=== PATIENT | female | born 1965 | race American Indian/Alaskan Native ===

== ENCOUNTER 2019-01-27 08:18 | Outpatient (CLI) | payer MEDICARE ==
[2019-01-27 11:14] LABS: Chol/HDL Ratio 4.3 %
== END 2019-01-27 08:19 | disposition home or self-care (01) ==
LOC: LAB 08:18
PROVIDERS: ATTEND Internal Medicine
DX: E78.00 Pure hypercholesterolemia, unspecified (principal)
CPT/HCPCS: 36415; 80061

== ENCOUNTER 2019-02-05 09:25 | Outpatient (CLI) | payer MEDICARE ==
--- NOTE | 2019-02-06 00:04 | Magnetic Resonance Report ---
PROCEDURE PROCEDURE: MRI SHOULDER WITHOUT CONTRAST TECHNIQUE: Magnetic resonance imaging of the LEFT shoulder was performed using standard pulse sequen tucker. CPT 52785 HISTORY: Decreased range of motion. Pain. Possible impingement COMPARISONS: None . FINDINGS: There is mild hypertrophic degenerative changes in the AC joint. There is diffuse thickening of the s upraspinatus tendon and increased T2 signal as well as mild increased T1 signal consistent with diffu se tendinosis. In addition there is focal T2 hyperintensity at the insertion of the supraspinatus ten don on the greater tuberosity along the bursal surface consistent with a partial-thickness tear. No evidence of full-thickness tear or retraction. Diffuse tendinosis also visualized within the infraspi natus tendon. Teres minor tendon is intact. The long head of the biceps tendon is appropriately locat ed within its groove. There is some fluid in the long head of the biceps tendon sheath consistent wit h tenosynovitis. There is increased T2 signal in the subscapularis tendon as it inserts on the lesser tuberosity consistent with tendinitis/partial tear. No evidence of full-thickness tear or retraction . Glenoid labrum grossly unremarkable. There is heterogeneous signal in the articular cartilage in the glenohumeral joint space consistent with chondromalacia. No exposed cortical bone is seen. There is n o evidence of joint effusion. No abnormal fluid is seen in the subacromial or subdeltoid bursa. IMPRESSION: Diffuse tendinosis supraspinatus tendon. In addition there appears to be a partial thick ness tear of the supraspinatus tendon as it inserts on the greater tuberosity along the bursal surfac e. No evidence of full-thickness tear or retraction. . Tendinosis infraspinatus tendon. Tendinitis versus partial thickness tear subscapularis tendon as it inserts on the lesser tuberosity. Mild tenosynovitis of the biceps tendon. Mild chondromalacia glenohumeral joint space. Mild hypertrophic degenerative changes AC joint. This document is electronically signed by Theron Astudillo MD., February 06 2019 01:02:49 AM ET
== END 2019-02-05 09:26 | disposition home or self-care (01) ==
LOC: MRI 09:25
PROVIDERS: ATTEND Orthopaedic Surgery
DX: M19.012 Primary osteoarthritis, left shoulder (principal); M94.212 Chondromalacia, left shoulder; M75.80 Other shoulder lesions, unspecified shoulder

== ENCOUNTER 2019-04-22 02:56 | Emergency (ER) | payer MEDICARE ==
[2019-04-22 03:46] VITALS: BP 127/83
--- NOTE | 2019-04-22 04:16 | Emergency Department Report ---
Chief Complaint: Medical Clearance Stated Complaint: RABIES VACCINE Time Seen by Provider: 04/22/19 04:06 - HPI History of Present Illness: This is a 53-year-old female who presents with complaining of exposure to that that happened a week ago. Patient states that she was not bit by the bat. Patient states she came in the room and dispose of the back with cup and let it out the front door. Patient states that she did not sustain any bites from the bat. Patient states she was not aware when the bat how long the bat was on the crib. She presents here with her mother to be evaluated. She states that she has not seen any bite [place] on her body did not feel any bite. She denies fevers/chills/nausea vomiting/myalgia or any other problems - ROS Review of Systems: As noted in HPI - Exam Vital Signs: Vital Signs 04/22/19 03:40 Temperature 98 F Pulse Rate 85 Respiratory 18 Rate Blood Pressure 127/83 O2 Sat by Pulse 98 Oximetry Physical Exam: General: Alert and oriented 3. Skin: There was no lesions noted MSE screening note: Focused history and physical exam performed. Due to findings the following was ordered: ED Medical Decision Making - Medical Decision Making 53-year-old female presents to bed exposure. Patient did not sustain any bite from the back. I discussed with the patient that there is no need for vaccination since she was not Bitten. Discussed follow-up with primary care physician. Vital signs are normal patient is in no acute distress ED Disposition for MSE Clinical Impression: Exposure to bat without known bite Disposition: DC-01 TO HOME OR SELFCARE Is pt being admited?: No Does the pt Need Aspirin: No Condition: Stable Instructions: Animal Bite (ED) Referrals: REGINO CUENCA MD [Primary Care Provider] - 3-5 Days Forms: Work/School Release Form(ED) Time of Disposition: 04:18
== END 2019-04-22 04:31 | disposition home or self-care (01) ==
LOC: ED 02:56
DX: T75.89XA Other specified effects of external causes, initial encounter (principal); X58.XXXA Exposure to other specified factors, initial encounter; Y93.89 Activity, other specified; Y92.89 Other specified places as the place of occurrence of the external cause; Y99.8 Other external cause status
CPT/HCPCS: 99281

== ENCOUNTER 2019-06-24 08:23 | Outpatient (CLI) | payer MEDICARE ==
[2019-06-24 10:50] LABS: Basophils # (Auto) 0.1 K/mm3 (0.0-0.1); Eosinophils # (Auto) 0.2 K/mm3 (0.0-0.4); Eosinophils % (Auto) 2.8 % (0.0-4.3); Monocytes # (Auto) 0.5 K/mm3 (0.0-0.8); Monocytes % (Auto) 6.8 % (0.0-7.3)
[2019-06-24 11:00] LABS: Basophils % (Auto) 0.8 % (0.0-1.8); Hematocrit 38.4 % (30.3-42.9); Hemoglobin 12.5 gm/dl (10.1-14.3); Lymphocytes % (Auto) 28.6 % (13.4-35.0); Mean Corpuscular HGB Conc 33 % (30-34); Mean Corpuscular Volume 85 fl (79-97); Platelet Count 158 K/mm3 (140-440); Red Blood Count 4.53 M/mm3 (3.65-5.03); Red Cell Distribution Width 14.9 % (13.2-15.2)
[2019-06-24 11:05] LABS: Alanine Aminotransferase 13 units/L (7-56); Albumin 4.2 g/dL (3.9-5); BUN/Creatinine Ratio 15; Blood Urea Nitrogen 12 mg/dL (7-17); Calcium 9.1 mg/dL (8.4-10.2); Chol/HDL Ratio 3.69 %; HDL Cholesterol 53 mg/dL (40-59); Hemolysis Index 0; LDL Cholesterol,Direct 141 mg/dL (50-130)
[2019-06-27 14:06] LABS: Vitamin D, 25-OH, D2 6 ng/mL
== END 2019-06-24 08:24 | disposition home or self-care (01) ==
LOC: LAB 08:23
PROVIDERS: ATTEND Internal Medicine
DX: Z13.21 Encounter for screening for nutritional disorder (principal); Z13.29 Encounter for screening for other suspected endocrine disorder; E78.00 Pure hypercholesterolemia, unspecified; E55.9 Vitamin D deficiency, unspecified; M19.90 Unspecified osteoarthritis, unspecified site; R79.89 Other specified abnormal findings of blood chemistry
CPT/HCPCS: 36415; 80053; 80061; 82306; 82607; 83036; 84443; 85025

== ENCOUNTER 2019-08-18 09:30 | Outpatient (CLI) | payer MEDICARE ==
--- NOTE | 2019-08-18 15:51 | Mammography Report ---
DIGITAL SCREENING MAMMOGRAM WITH CAD, 08/18/2019 INDICATION: Routine screening mammography. TECHNIQUE: Digital bilateral 2D mammography was obtained in the craniocaudal and mediolateral obliq ue projections. This examination was interpreted with the benefit of Computer-Aided Detection analysi s. COMPARISON: 08/12/2018 FINDINGS: Breast Density: There are scattered areas of fibroglandular density. There is no evidence of dominant mass, suspicious calcifications or architectural distortion in eithe r breast. IMPRESSION: No mammographic evidence of malignancy. Follow up recommendation: Routine yearly BI-RADS Category 1: Negative. A "normal" or negative report should not discourage follow up or biopsy of a clinically significant f inding. A written summary of these findings will be mailed to the patient. The patient will be entered into a mammography reporting system which will generate a reminder letter for the patient's next appointmen t at the appropriate interval. [employer] recommends yearly mammograms starting at age 40 and continuing as l radha as a woman is in good health. Breast MRI is recommended for women with an approximate 20-25% or greater lifetime risk of breast cancer, including women with a strong family history of breast or ova carole cancer or who have been treated for Hodgkin's disease. Signer Name: Clay Tolentino MD Signed: 08/18/2019 3:47 PM Workstation Name: [id number]
== END 2019-08-18 09:31 | disposition home or self-care (01) ==
LOC: MAMMO 09:30
PROVIDERS: ATTEND Internal Medicine
DX: Z12.31 Encounter for screening mammogram for malignant neoplasm of breast (principal)
CPT/HCPCS: 77067

== ENCOUNTER 2019-11-08 09:11 | Outpatient (CLI) | payer MEDICARE ==
[2019-11-08 11:23] LABS: Chol/HDL Ratio 3.38 %
== END 2019-11-08 09:12 | disposition home or self-care (01) ==
LOC: LAB 09:11
PROVIDERS: ATTEND Internal Medicine
DX: E78.00 Pure hypercholesterolemia, unspecified (principal); E55.9 Vitamin D deficiency, unspecified
CPT/HCPCS: 36415; 80061; 82306